=== PATIENT | male | born 1985 | race Two or more races ===

== ENCOUNTER 2017-10-23 16:57 | Emergency (ER) | payer OTHER, BC ==
[~2017-10-23] VITALS: Ht 177.8 cm; Wt 77.1 kg
[~2017-10-23 16:57] MED LIST: AMOX-260 PO
[2017-10-23] MEDS ORDERED: IV NORMAL SALINE 1,000ML 1,000 ML IV SCH (17:27)
[2017-10-23] MEDS ORDERED: 0.9 % SODIUM CHLORIDE 10 ML DISP.SYRIN. IV PRN (17:30)
[2017-10-23] MEDS ORDERED: IOHEXOL 300 MG/ML 75 ML VIAL. ONE (17:49)
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
[2017-10-23] MEDS ORDERED: IOHEXOL 300 MG/ML 75 ML VIAL. IV ONE (18:00)
[2017-10-23] MEDS ORDERED: CONTRAST GIVEN MC PRN (18:00)
[2017-10-23] MEDS ORDERED: KETOROLAC 30 MG/ML VIAL. IV ONE (18:00)
[2017-10-23 18:38] LABS: BASO % 0 % (0-3); EOS # 0.1 x10^3/uL (0.0-0.7); EOS % 1 % (0-3); HEMATOCRIT 42.4 % (39.0-53.0); HEMOGLOBIN 14.4 g/dL (13.0-17.5); LYMPH # 1.6 x10^3/uL (1.0-4.8); LYMPH % 16 % (24-48); MEAN CORPUSCULAR HEMOGLOBIN 30 pg (25-35); MEAN CORPUSCULAR HGB CONC 34 g/dL (31-37); MEAN CORPUSCULAR VOLUME 89 fL (79-100); MONO # 0.7 x10^3/uL (0.0-1.1); MONO % 7 % (0-9); NEUT % 76 % (31-73); PLATELET COUNT 182 x10^3/uL (140-400); RED BLOOD COUNT 4.78 x10^6/uL (4.30-5.70); RED CELL DISTRIBUTION WIDTH 13.3 % (11.5-14.5); WHITE BLOOD COUNT 10.4 x10^3/uL (4.0-11.0)
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
[2017-10-23 18:54] LABS: ALBUMIN 3.9 g/dL (3.4-5.0); ALBUMIN/GLOBULIN RATIO 1.4 (1.0-1.7); CALCIUM 8.5 mg/dL (8.5-10.1); CREATININE 0.9 mg/dL (0.7-1.3); GFR 98.4; POTASSIUM 4.3 mmol/L (3.5-5.1); TOTAL BILIRUBIN 0.5 mg/dL (0.2-1.0); TOTAL PROTEIN 6.6 g/dL (6.4-8.2)
[2017-10-23 19:37] LABS: BARBITURATES NEG (NEG); BENZODIAZEPINES NEG (NEG); CANNABINOIDS NEG (NEG); COCAINE NEG (NEG); METHADONE NEG (NEG); OPIATES NEG (NEG); PHENCYCLIDINE NEG (NEG)
[2017-10-23 19:45] LABS: BILIRUBIN,URINE NEG (NEG); CLARITY,URINE CLEAR; COLOR,URINE YELLOW; GLUCOSE,URINE NEG (NEG)
[2017-10-23 19:46] LABS: BACTERIA,URINE 0 /HPF (0-FEW); NITRITE,URINE NEG (NEG); RBC,URINE 0 /HPF (0-2); SQUAMOUS EPITHELIAL CELL,UR OCC /LPF; UROBILINOGEN,URINE 1 mg/dL (0.2 mg/dL); WBC,URINE OCC /HPF (0-4)
[2017-10-23 19:54] LABS: AMPHETAMINE/METHAMPHETAMINE NEG (NEG)
[2017-10-23] MEDS ORDERED: NAPR500T8 PO (20:13)
[2017-10-23] MEDS ORDERED: HYDR-971 PO (20:13)
[2017-10-23 20:25] VITALS: BP 117/80
== END 2017-10-23 20:27 | disposition home or self-care (01) ==
LOC: ER 16:57
DX: S00.83XA Contusion of other part of head, initial encounter (principal); S60.222A Contusion of left hand, initial encounter; R07.89 Other chest pain; Z91.048 Other nonmedicinal substance allergy status; V49.9XXA Car occupant (driver) (passenger) injured in unspecified traffic accident, initial encounter; Y93.89 Activity, other specified; Y99.8 Other external cause status; Y92.488 Other paved roadways as the place of occurrence of the external cause
CPT/HCPCS: 36415; 70450; 71260; 72125; 74160; 80053; 80307; 81001; 85025; 85610; 85730; 96374; 99285; G0480; J1885; Q9967; G0479; J7030

== ENCOUNTER 2018-12-23 03:41 | Emergency (ER) | payer BC, OTHER ==
[~2018-12-23] VITALS: Ht 172.7 cm; Wt 56.7 kg
[~2018-12-23 03:41] MED LIST changes: +HYDR-3165 PO; +NAPR500T8 PO
--- NOTE | 2018-12-23 04:32 | PHYS DOC ---
Past History Past Medical History: No Pertinent History (ZACKARY AARON DO) Past Surgical History: No Surgical History (ZACKARY AARON DO) Alcohol Use: Rarely Drug Use: None (ZACKARY AARON DO) Adult General Chief Complaint Chief Complaint: SUICDAL IDEATION HPI HPI 33-year-old male presents with suicidal ideation. The patient has been having recurrent thoughts of suicide for more than 2 weeks. 2 weeks ago he tried to hang himself the rope, but changed his mind and did not go through with it. The patient has been having marital relationship issues. He does not have a specific plan at this time. He came today to see just decided he needed to get help instead of trying to deal with this himself. He denies alcohol or drug use. (ZACKARY AARON DO) Review of Systems Review of Systems Constitutional: Denies fever or chills [] Eyes: Denies change in visual acuity, redness, or eye pain [] HENT: Denies nasal congestion or sore throat [] Respiratory: Denies cough or shortness of breath [] Cardiovascular: No additional information not addressed in HPI [] GI: Denies abdominal pain, nausea, vomiting, bloody stools or diarrhea [] : Denies dysuria or hematuria [] Musculoskeletal: Denies back pain or joint pain [] Integument: Denies rash or skin lesions [] Neurologic: Denies headache, focal weakness or sensory changes [] Endocrine: Denies polyuria or polydipsia [] All other systems were reviewed and found to be within normal limits, except as documented in this note. (ZACKARY AARON DO) Allergies Allergies Allergies Uncoded Allergies Type Severity Reaction Last Updated Verified beer Allergy Unknown 04/11/16 (ZACKARY AARON DO) Physical Exam Physical Exam Constitutional: Well developed, well nourished, no acute distress, non-toxic appearance. [] HENT: Normocephalic, atraumatic, bilateral external ears normal, oropharynx moist, no oral exudates, nose normal. [] Eyes: PERRLA, EOMI, conjunctiva normal, no discharge. [] Neck: Normal range of motion, no tenderness, supple, no stridor. [] Cardiovascular:Heart rate regular rhythm, no murmur [] Lungs & Thorax: Bilateral breath sounds clear to auscultation [] Abdomen: Bowel sounds normal, soft, no tenderness, no masses, no pulsatile masses. [] Skin: Warm, dry, no erythema, no rash. [] Back: No tenderness, no CVA tenderness. [] Extremities: No tenderness, no cyanosis, no clubbing, ROM intact, no edema. [] Neurologic: Alert and oriented X 3, normal motor function, normal sensory function, no focal deficits noted. [] Psychologic: Affect normal, judgement normal, mood depressed. [] (ZACKARY AARON DO) Current Patient Data Vital Signs Vital Signs Date Time Temp Pulse Resp B/P (MAP) Pulse Ox O2 Delivery O2 Flow Rate FiO2 12/23/18 04:12 97.9 90 16 99 Room Air (ZACKARY AARON DO) EKG EKG [] (ZACKARY AARON DO) Radiology/Procedures Radiology/Procedures [] (ZACKARY AARON DO) Course & Med Decision Making Course & Med Decision Making Pertinent Labs and Imaging studies reviewed. (See chart for details) The patient's labs and psychiatric consult are pending. I am signing the patient out to Dr. Stein at 0600. He will determine the patient's final disposition. [] (ZACKARY AARON DO) Course & Med Decision Making I took over care of patient from Dr. Aaron at 0600. Patient underwent psychiatric screening through the guidance center. After his evaluation, they have recommended outpatient follow-up at the guidance center this morning at 0900. Patient was instructed of plan of care and signed a safety agreement stating that he would abide and visit the guidance center upon discharge from the emergency department this morning. Advised return to the emergency department for any worsening symptoms. Patient was understanding and in agreement with treatment plan. (FAUSTINA STEIN MD) Dragon Disclaimer Dragon Disclaimer This electronic medical record was generated, in whole or in part, using a voice recognition dictation system. (ZACKARY AARON DO) Departure Departure: Impression: Primary Impression: Suicidal ideation Disposition: 01 HOME, SELF-CARE Condition: STABLE Referrals: PCP,NO (PCP) Patient Instructions: Suicidal Feelings, How to Help Yourself Additional Instructions: Upon discharge from the emergency Department your to go to the guidance center for further evaluation. Please return to the emergency department for any worsening symptoms or further thoughts of suicide. ZCAKARY AARON DO Dec 23, 2018 04:32 FAUSTINA STEIN MD Dec 23, 2018 08:26
[2018-12-23 04:58] LABS: BARBITURATES NEG (NEG); BENZODIAZEPINES NEG (NEG); CANNABINOIDS NEG (NEG); COCAINE NEG (NEG); METHADONE NEG (NEG); OPIATES NEG (NEG); PHENCYCLIDINE NEG (NEG)
[2018-12-23 04:59] LABS: AMPHETAMINE/METHAMPHETAMINE NEG (NEG)
[2018-12-23 05:05] LABS: BILIRUBIN,URINE NEG (NEG); CLARITY,URINE CLEAR; COLOR,URINE YELLOW; GLUCOSE,URINE NEG (NEG)
[2018-12-23 05:06] LABS: BACTERIA,URINE 0 /HPF (0-FEW); NITRITE,URINE NEG (NEG); RBC,URINE 0 /HPF (0-2); SQUAMOUS EPITHELIAL CELL,UR OCC /LPF; UROBILINOGEN,URINE 0.2 mg/dL (0.2 mg/dL); WBC,URINE OCC /HPF (0-4)
[2018-12-23 05:40] LABS: BASO % 0 % (0-3); EOS # 0.1 x10^3/uL (0.0-0.7); EOS % 1 % (0-3); HEMATOCRIT 47.8 % (39.0-53.0); LYMPH # 1.6 x10^3/uL (1.0-4.8); LYMPH % 22 % (24-48); MEAN CORPUSCULAR HEMOGLOBIN 30 pg (25-35); MEAN CORPUSCULAR HGB CONC 33 g/dL (31-37); MEAN CORPUSCULAR VOLUME 90 fL (79-100); MONO # 0.6 x10^3/uL (0.0-1.1); MONO % 9 % (0-9); NEUT # 4.9 x10^3uL (1.8-7.7); NEUT % 68 % (31-73); PLATELET COUNT 199 x10^3/uL (140-400); RED BLOOD COUNT 5.33 x10^6/uL (4.30-5.70); RED CELL DISTRIBUTION WIDTH 12.8 % (11.5-14.5); WHITE BLOOD COUNT 7.2 x10^3/uL (4.0-11.0)
[2018-12-23 05:53] LABS: ALBUMIN 4.4 g/dL (3.4-5.0); ALBUMIN/GLOBULIN RATIO 1.4 (1.0-1.7); CALCIUM 9.5 mg/dL (8.5-10.1); GFR 86.6; POTASSIUM 3.7 mmol/L (3.5-5.1); TOTAL BILIRUBIN 0.7 mg/dL (0.2-1.0); TOTAL PROTEIN 7.5 g/dL (6.4-8.2)
[2018-12-23] MEDS ORDERED: diphenhydrAMINE HCL 25 MG CAPSULE PO ONE (06:00)
[2018-12-23] MEDS ORDERED: NICOTINE 21MG PATCH. TD ONE (06:00)
[2018-12-23 08:17] VITALS: BP 107/71
== END 2018-12-23 08:30 | disposition home or self-care (01) ==
LOC: ER 03:41
DX: R45.851 Suicidal ideations (principal); Z91.048 Other nonmedicinal substance allergy status
CPT/HCPCS: 36415; 80053; 80307; 81001; 85025; 99284; Q0163

== ENCOUNTER → 2019-12-15 | Outpatient (CLI) | payer BC ==
--- NOTE | 2019-12-15 11:00 | RAD ---
Examination: ABDOMEN COMPLETE History: Reason: GENERALIZED ABD PAIN / Spl. Instructions: / History: Comparison/Correlation: None Findings: Complete upper abdominal ultrasound exam was performed. Hepatic echotexture is normal. Trace debris within the gallbladder may be present or this may alternatively represent artifact. No gallbladder calculi or biliary dilatation. Portal venous flow and spectral waveform are unremarkable. Proximal pancreas is normal. Distal pancreas is obscured by bowel gas. No upper abdominal ascites. Spleen measures 9 cm longitudinal. Right kidney measures 10.1 cm x 4.6 x 4.7. Left kidney measures 10.2 cm x 4.4 cm x 4.87. No hydronephrosis. Renal contours and echotexture are unremarkable. No upper abdominal ascites. Atheromatous involvement of the abdominal aorta is present. Partially visualized inferior vena cava is unremarkable. Impression: No suspicious process. Unremarkable exam. Electronically signed by: Justino Asif MD (12/15/2019 10:57 AM) [id number]
== END ==
LOC: US 10:05
PROVIDERS: ATTEND Nurse Practitioner Family
DX: R10.84 Generalized abdominal pain (principal)
CPT/HCPCS: 76700